=== PATIENT | male | born 1985 | race Two or more races ===

== ENCOUNTER 2022-10-10 07:40 | Emergency (ER) | payer MEDICAID ==
[~2022-10-10] VITALS: Ht 177.8 cm; Wt 127.0 kg
[2022-10-10 08:00] VITALS: BP 149/93
--- NOTE | 2022-10-10 08:00 | NUR ---
BIBS FOR CELLULUITS. A/O X 3, ABLE TO MAKE NEEDS KNOWN, TOLERATING WELL ON ROOM AIR.
[2022-10-10] MEDS ORDERED: CEPH500T PO (08:06)
--- NOTE | 2022-10-10 08:46 | NUR ---
Patient discharged to home in stable condition. Written and verbal after care instructions given. Patient verbalizes understanding of instruction.
== END 2022-10-10 08:47 | disposition home or self-care (01) ==
LOC: ER 07:42
DX: L03.115 Cellulitis of right lower limb (principal); Z79.899 Other long term (current) drug therapy